=== PATIENT | male | born 1995 | race Caucasian/White ===

== ENCOUNTER 2016-06-21 07:00 | Inpatient (IN) | payer BC, OTHER ==
[2016-06-21] MEDS ORDERED: NORMAL SALINE 1000 ML 1,000 ML IV PRN ×2 (07:16→08:17)
[2016-06-21] MEDS ORDERED: MORPHINE SULFATE 10 MG/ML INJ IV ONE (07:34)
[2016-06-21] MEDS ORDERED: ONDANSETRON HCL INJ/PF 4 MG/2 ML SDV IV ONE (07:34)
--- NOTE | 2016-06-21 07:36 | ER Document Report ---
ED General - General Chief Complaint: High Blood Sugar Stated Complaint: POSSIBLE DKA Time Seen by Provider: 06/21/16 07:15 Mode of Arrival: Ambulatory Information source: Patient Notes: 21-year-old male history of diabetes who had issues with his insulin being sent home presents with complaints of nausea vomiting 7. Patient notes his blood sugar at home was 419 prior to arrival. Patient has not been in DKA many years TRAVEL OUTSIDE OF THE [place] IN LAST 30 DAYS: No - HPI Onset: Just prior to arrival Onset/Duration: Sudden Quality of pain: Achy Severity: Moderate Pain Level: 2 Associated symptoms: Headache, Nausea, Vomiting Exacerbated by: Denies Relieved by: Denies Similar symptoms previously: Yes Recently seen / treated by doctor: No - Related Data Allergies/Adverse Reactions: No Known Allergies Allergy (Unverified 06/21/16 07:07) Past Medical History - Social History Smoking Status: Never Smoker Cigarette use (# per day): No Chew tobacco use (# tins/day): No Smoking Education Provided: No Family History: Reviewed & Not Pertinent Patient has suicidal ideation: No Patient has homicidal ideation: No Renal/ Medical History: Denies: Hx Peritoneal Dialysis Review of Systems - Review of Systems Notes: PHYSICAL EXAMINATION: GENERAL: Ill appearing male in mild distress HEAD: Atraumatic, normocephalic. EYES: Pupils equal round and reactive to light, extraocular movements intact, conjunctiva are normal. ENT: Nares patent, oropharynx clear without exudates. Moist mucous membranes. NECK: Normal range of motion, supple without lymphadenopathy LUNGS: Tachypneic HEART: Tachycardic ABDOMEN: Soft, nontender, nondistended abdomen. No guarding, no rebound. No masses appreciated. Female : deferred Musculoskeletal: Normal range of motion, no pitting or edema. No cyanosis. NEUROLOGICAL: Normal speech, normal gait. Normal sensory, motor exams PSYCH: Normal mood, normal affect. SKIN: Pale Physical Exam - Vital signs Vitals: Temp Pulse Resp BP Pulse Ox 97.9 F 126 H 18 150/91 H 99 06/21/16 07:04 06/21/16 07:04 06/21/16 07:04 06/21/16 07:04 06/21/16 07:04 Course - Re-evaluation Re-evalutation: 06/21/16 07:36 Patient is in probable DKA, lab work fluids pain control and nausea control have been ordered 06/21/16 08:53 glucose 412, co2 <6 06/21/16 09:01 consistant with dka, insuline drip order given to nurse - Vital Signs Vital signs: Temp Pulse Resp BP Pulse Ox 97.9 F 113 H 20 154/91 H 100 06/21/16 07:04 06/21/16 07:55 06/21/16 08:15 06/21/16 07:55 06/21/16 08:15 - Laboratory Result Diagrams: 06/21/16 07:54 06/21/16 07:54 Laboratory results interpreted by me: 06/21/16 06/21/16 06/21/16 07:54 07:54 07:54 WBC 17.2 H RBC 6.04 H Hct 52.5 H Seg Neutrophils % 84.1 H Lymphocytes % 9.7 L Absolute Neutrophils 14.5 H VBG pH 7.11 L* VBG pCO2 23.6 L VBG HCO3 7.4 L Sodium 135.1 L Carbon Dioxide 6 L* Anion Gap 31 H Glucose 412 H* Direct Bilirubin 0.7 H Total Protein 9.1 H Albumin 5.4 H Urine Protein Urine Glucose (UA) Urine Ketones Urine Blood 06/21/16 08:17 WBC RBC Hct Seg Neutrophils % Lymphocytes % Absolute Neutrophils VBG pH VBG pCO2 VBG HCO3 Sodium Carbon Dioxide Anion Gap Glucose Direct Bilirubin Total Protein Albumin Urine Protein 100 H Urine Glucose (UA) >=500 H Urine Ketones 80 H Urine Blood SMALL H Discharge - Discharge Clinical Impression: Diabetic ketoacidosis Qualifiers: Diabetes mellitus type: type 1 Diabetes mellitus complication detail: without coma Qualified Code(s): E10.10 - Type 1 diabetes mellitus with ketoacidosis without coma Vomiting Qualifiers: Vomiting type: unspecified Vomiting Intractability: non-intractable Nausea presence: with nausea Qualified Code(s): R11.2 - Nausea with vomiting, unspecified Condition: Fair Disposition: ADMITTED INPATIENT Admitting Provider: Hospitalist Unit Admitted: [facility]
[2016-06-21 08:13] LABS: ABSOLUTE BASOPHILS # (AUTO) 0.1 10^3/uL (0.0-0.2); ABSOLUTE LYMPHOCYTES (AUTO) 1.7 10^3/uL (0.5-4.7); ABSOLUTE NEUT (AUTO) 14.5 10^3/uL (1.7-8.2); BASOPHILS % (AUTO) 0.5 % (0-2); HEMATOCRIT 52.5 % (37.9-51.0); HGB HCT DIFFERENCE -1.5; LYMPHOCYTES % (AUTO) 9.7 % (13-45); MEAN CORPUSCULAR HEMOGLOBIN 28.2 pg (27.0-33.4); MEAN CORPUSCULAR HGB CONC 32.5 g/dL (32.0-36.0); MEAN CORPUSCULAR VOLUME 87 fl (80-97); MONOCYTES % (AUTO) 5.7 % (3-13); RED BLOOD COUNT 6.04 10^6/uL (4.35-5.55); RED CELL DISTRIBUTION WIDTH 13.6 % (11.5-14.0); SEGMENTED NEUTROPHILS % (AUTO) 84.1 % (42-78); VENOUS BLOOD BASE EXCESS -20.2 mmol/L; VENOUS BLOOD HCO3 7.4 mmol/L (20-32); VENOUS BLOOD PCO2 23.6 mmHg (35-63); WHITE BLOOD COUNT 17.2 10^3/uL (4.0-10.5)
[2016-06-21 08:20] LABS: VENOUS BLOOD PH 7.11 (7.30-7.42)
[2016-06-21 08:31] LABS: ALANINE AMINOTRANSFERASE 29 U/L (21-72); ALBUMIN 5.4 g/dL (3.5-5.0); ALKALINE PHOSPHATASE 112 U/L (38-126); ASPARTATE AMINO TRANSFERASE 20 U/L (17-59); BILIRUBIN,DIRECT 0.7 mg/dL (0.0-0.4); BLOOD UREA NITROGEN 13 mg/dL (7-20); CALCIUM 9.6 mg/dL (8.4-10.2); CHLORIDE 98 mmol/L (98-107); CREATININE RESULT 1.02 mg/dL (0.52-1.25); POTASSIUM 4.8 mmol/L (3.6-5.0); SODIUM 135.1 mmol/L (137-145); TOTAL PROTEIN 9.1 g/dL (6.3-8.2)
[2016-06-21 08:50] LABS: APPEARANCE,URINE CLEAR; BILIRUBIN,URINE NEGATIVE (NEGATIVE); GLUCOSE, URINE >=500 mg/dL (NEGATIVE); KETONES,URINE 80 mg/dL (NEGATIVE); LEUKOCYTE ESTERASE,URINE NEGATIVE (NEGATIVE); NITRITE,URINE NEGATIVE (NEGATIVE); PROTEIN,URINE 100 mg/dL (NEGATIVE); URINE SPECIFIC GRAVITY 1.027; UROBILINOGEN,URINE NEGATIVE mg/dL (<2.0)
[2016-06-21 08:52] LABS: GLUCOSE 412 mg/dL (75-110)
[2016-06-21 08:53] LABS: CARBON DIOXIDE 6 mmol/L (22-30)
[2016-06-21 08:55] LABS: ANION GAP 31 (5-19)
[2016-06-21] MEDS ORDERED: INSULIN REG, HUMAN 100 UNIT/ML 3 ML VIAL (PYX) ONE (09:07)
[2016-06-21] MEDS ORDERED: ZOLPIDEM TARTRATE 5 MG TABLET PO PRN (09:23)
[2016-06-21] MEDS ORDERED: ONDANSETRON HCL INJ/PF 4 MG/2 ML SDV IV PRN (09:23)
[2016-06-21] MEDS ORDERED: ACETAMINOPHEN 325 MG TABLET PO PRN (09:23)
[2016-06-21] MEDS ORDERED: INSULIN LISPRO 100 UNIT/ML 3 ML VIAL SUBCUT PRN (09:31)
[2016-06-21] MEDS ORDERED: GLUCAGON,HUMAN RECOMB 1 MG INJ IM PRN ×3 (09:31→09:39)
[2016-06-21] MEDS ORDERED: NORMAL SALINE 100 ML with INSULIN REGULAR, HUMAN 100 UNIT IV PRN ×2 (09:31)
[2016-06-21] MEDS ORDERED: DEXTROSE 40% GEL 15 GM TUBE PO PRN ×5 (09:31→09:39)
[2016-06-21] MEDS ORDERED: DEXTROSE 50%-WATER 25 GM/50 ML DISP.SYRIN IV PRN ×4 (09:31→09:33)
[2016-06-21] MEDS ORDERED: INSULIN, REGULAR 100 UNIT/100 ML NORMAL SALINE IV PRN ×2 (09:39)
[2016-06-21] MEDS ORDERED: DEXTROSE 50%-WATER SYRINGE 12.5 GM/25 ML DOSE IV PRN (09:39)
[2016-06-21] MEDS ORDERED: DEXTROSE 50%-WATER SYRINGE 25 GM/50 ML DOSE IV PRN (09:39)
[2016-06-21] MEDS ORDERED: DEXTROSE 40% GEL 15 GM TUBE X 2 PO PRN (09:39)
[2016-06-21] MEDS ORDERED: FAMOTIDINE 20 MG TABLET PO SCH (10:00)
[2016-06-21] MEDS ORDERED: KETOROLAC TROMETHAMINE INJ/PF 30 MG/1 ML SDV IV PRN (10:09)
[2016-06-21] MEDS ORDERED: MORPHINE SULFATE 10 MG/ML INJ IV PRN (10:50)
[2016-06-21 12:15] LABS: BLOOD UREA NITROGEN 10 mg/dL (7-20); CALCIUM 7.5 mg/dL (8.4-10.2); CHLORIDE 112 mmol/L (98-107); GLUCOSE 163 mg/dL (75-110); POTASSIUM 4.5 mmol/L (3.6-5.0)
[2016-06-21 12:29] LABS: SODIUM 137.5 mmol/L (137-145)
[2016-06-21 12:38] LABS: ANION GAP 18 (5-19); CARBON DIOXIDE 8 mmol/L (22-30)
--- NOTE | 2016-06-21 12:56 | PDOC H&P ---
History of Present Illness Admission Date/PCP: 06/21/16 09:25 Patient complains of: Nausea, vomiting and elevated blood sugar History of Present Illness: HILARIA MCWILLIAMS is a 21 year old male with history of diabetes mellitus type I , who presents to the emergency room with complaints of nausea and vomiting 7 this morning and elevated blood glucose of 419. Patient states he ran out of of his insulin yesterday afternoon for his insulin pump. He had ordered it from the pharmacy on Monday, and they had had a hard time obtaining the type of insulin he uses for his pump. He states he went to get up yesterday afternoon and they informed him it wouldn't be there for another 24 hours. He states he did have vials of regular insulin at home which he uses covering himself up until bedtime. He did not have any long-acting insulin to use for overnight. He noted acetone breath after his nausea and vomiting episode. Therefore presented to the emergency room for possible DKA. 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 Past Medical History Cardiac Medical History: Reports: None Pulmonary Medical History: Reports: None EENT Medical History: Reports: None Neurological Medical History: Reports: None Endocrine Medical History: Reports: Diabetes Mellitus Type 1 - INSULIN PUMP Renal/ Medical History: Reports: None Malignancy Medical History: Reports: None GI Medical History: Reports: None Musculoskeltal Medical History: Reports: None Skin Medical History: Reports: None Psychiatric Medical History: Reports: None Traumatic Medical History: Reports: None Infectious Medical History: Reports: None Past Surgical History Past Surgical History: Reports: Orthopedic Surgery - R SHOULDER, Tonsillectomy - AND ADDENNOIDS Social History Information Source: Patient Lives with: Family Smoking Status: Never Smoker Frequency of Alcohol Use: Rare Hx Recreational Drug Use: No Hx Prescription Drug Abuse: No - Advance Directive Resuscitation Status: Full Code Surrogate healthcare decision maker:: Home, parents Family History Family History: DM Parental Family History Reviewed: Yes Children Family History Reviewed: Yes Sibling(s) Family History Reviewed.: Yes Medication/Allergy Allergies/Adverse Reactions: No Known Allergies Allergy (Verified 06/21/16 09:19) Review of Systems Constitutional: ABSENT: chills, fever(s), headache(s), weight gain, weight loss Eyes: ABSENT: visual disturbances Ears: ABSENT: hearing changes Cardiovascular: ABSENT: chest pain, dyspnea on exertion, edema, orthropnea, palpitations Respiratory: ABSENT: cough, hemoptysis Gastrointestinal: ABSENT: abdominal pain, constipation, diarrhea, hematemesis, hematochezia, nausea, vomiting Genitourinary: ABSENT: dysuria, hematuria Musculoskeletal: ABSENT: joint swelling Integumentary: ABSENT: rash, wounds Neurological: ABSENT: abnormal gait, abnormal speech, confusion, dizziness, focal weakness, syncope Psychiatric: ABSENT: anxiety, depression, homidical ideation, suicidal ideation Endocrine: ABSENT: cold intolerance, heat intolerance, polydipsia, polyuria Hematologic/Lymphatic: ABSENT: easy bleeding, easy bruising Physical Exam Vital Signs: Temp Pulse Resp BP Pulse Ox 97.9 F 100 18 126/74 H 100 06/21/16 07:04 06/21/16 11:24 06/21/16 11:30 06/21/16 11:30 06/21/16 11:30 General appearance: PRESENT: no acute distress, well-developed, well-nourished Head exam: PRESENT: atraumatic, normocephalic Eye exam: PRESENT: conjunctiva pink, EOMI, PERRLA. ABSENT: scleral icterus Ear exam: PRESENT: normal external ear exam Mouth exam: PRESENT: moist, tongue midline Neck exam: ABSENT: carotid bruit, JVD, lymphadenopathy, thyromegaly Respiratory exam: PRESENT: clear to auscultation arnoldo. ABSENT: rales, rhonchi, wheezes Cardiovascular exam: PRESENT: RRR. ABSENT: diastolic murmur, rubs, systolic murmur Pulses: PRESENT: normal dorsalis pedis pul Vascular exam: PRESENT: normal capillary refill GI/Abdominal exam: PRESENT: normal bowel sounds, soft. ABSENT: distended, guarding, mass, organolmegaly, rebound, tenderness Rectal exam: PRESENT: deferred Extremities exam: PRESENT: full ROM. ABSENT: calf tenderness, clubbing, pedal edema Neurological exam: PRESENT: alert, awake, oriented to person, oriented to place , oriented to time, oriented to situation, CN II-XII grossly intact. ABSENT: motor sensory deficit Psychiatric exam: PRESENT: appropriate affect, normal mood. ABSENT: homicidal ideation, suicidal ideation Skin exam: PRESENT: dry, intact, warm. ABSENT: cyanosis, rash Assessment & Plan - Diagnosis (1) DKA (diabetic ketoacidoses) Qualifiers: Diabetes mellitus type: type 1 Diabetes mellitus complication detail: without coma Qualified Code(s): E10.10 - Type 1 diabetes mellitus with ketoacidosis without coma Is this a current diagnosis for this admission?: YesPlan: IV hydration, IV insulin drip, serial BMPs until anion gap closes. Patient will be transitioned to his home insulin pump (2) Vomiting Qualifiers: Vomiting type: unspecified Vomiting Intractability: non-intractable Nausea presence: with nausea Qualified Code(s): R11.2 - Nausea with vomiting, unspecified Is this a current diagnosis for this admission?: YesPlan: When necessary IV Zofran, IV fluids, clear liquid diet and advance as tolerated. (3) Headache Qualifiers: Headache chronicity pattern: acute headache Intractability: not intractable Is this a current diagnosis for this admission?: YesPlan: Toradol prn (4) DVT prophylaxis Is this a current diagnosis for this admission?: YesPlan: Lovenox 40 mg sq daily - Time Time Spent: 50 to 70 Minutes Critical Time spent with patient: 25-34 minutes Medications reviewed and adjusted accordingly: Yes Anticipated discharge: Home
[2016-06-21] MEDS ORDERED: FAMOTIDINE INJ/PF 20 MG/2 ML SDV IV SCH (13:45)
[2016-06-21] MEDS: OXYCODONE-ACETAMINOPHEN 5-325 MG TABLET PO PRN ×2 (14:07→23:05)
[2016-06-21] MEDS ORDERED: FAMOTIDINE INJ/PF 20 MG/2 ML SDV IV ONE (15:00)
[2016-06-21 16:26] LABS: ANION GAP 13 (5-19); BLOOD UREA NITROGEN 9 mg/dL (7-20); CALCIUM 7.8 mg/dL (8.4-10.2); CARBON DIOXIDE 13 mmol/L (22-30); CHLORIDE 110 mmol/L (98-107); CREATININE RESULT 0.83 mg/dL (0.52-1.25); GLUCOSE 166 mg/dL (75-110); POTASSIUM 4.1 mmol/L (3.6-5.0); SODIUM 136.4 mmol/L (137-145)
[2016-06-21 20:39] LABS: ANION GAP 6 (5-19); BLOOD UREA NITROGEN 9 mg/dL (7-20); CALCIUM 8.2 mg/dL (8.4-10.2); CARBON DIOXIDE 17 mmol/L (22-30); CHLORIDE 113 mmol/L (98-107); CREATININE RESULT 0.74 mg/dL (0.52-1.25); GLUCOSE 102 mg/dL (75-110); POTASSIUM 3.4 mmol/L (3.6-5.0); SODIUM 136.4 mmol/L (137-145)
[2016-06-21] MEDS: FAMOTIDINE INJ/PF 20 MG/2 ML SDV IV SCH (21:39)
[2016-06-21] MEDS: NORMAL SALINE 1000 ML 1,000 ML IV PRN (21:40)
[2016-06-22 00:35] LABS: ANION GAP 13 (5-19); BLOOD UREA NITROGEN 7 mg/dL (7-20); CALCIUM 8.2 mg/dL (8.4-10.2); CARBON DIOXIDE 14 mmol/L (22-30); CHLORIDE 109 mmol/L (98-107); CREATININE RESULT 0.59 mg/dL (0.52-1.25); GLUCOSE 148 mg/dL (75-110); POTASSIUM 3.5 mmol/L (3.6-5.0); SODIUM 136.2 mmol/L (137-145)
[2016-06-22] MEDS: NORMAL SALINE 1000 ML 1,000 ML IV PRN ×3 (04:42→19:38)
[2016-06-22 06:14] LABS: ABSOLUTE EOSINOPHILS # (AUTO) 0.1 10^3/uL (0.0-0.6); ABSOLUTE LYMPHOCYTES (AUTO) 2.7 10^3/uL (0.5-4.7); ABSOLUTE MONOCYTES (AUTO) 0.6 10^3/uL (0.1-1.4); ABSOLUTE NEUT (AUTO) 3.4 10^3/uL (1.7-8.2); BASOPHILS % (AUTO) 0.6 % (0-2); EOSINOPHILS % (AUTO) 1.9 % (0-6); HEMATOCRIT 37.6 % (37.9-51.0); HGB HCT DIFFERENCE 0.5; LYMPHOCYTES % (AUTO) 38.9 % (13-45); MEAN CORPUSCULAR HEMOGLOBIN 28.4 pg (27.0-33.4); MEAN CORPUSCULAR HGB CONC 33.9 g/dL (32.0-36.0); MONOCYTES % (AUTO) 9.2 % (3-13); RED BLOOD COUNT 4.49 10^6/uL (4.35-5.55); RED CELL DISTRIBUTION WIDTH 13.3 % (11.5-14.0); SEGMENTED NEUTROPHILS % (AUTO) 49.4 % (42-78)
[2016-06-22 06:17] LABS: HEMOGLOBIN 12.7 g/dL (13.5-17.0); MEAN CORPUSCULAR VOLUME 84 fl (80-97)
[2016-06-22] MEDS ORDERED: POTASSIUM CHLORIDE 10 MEQ TABLET.SA PO ONE (07:45)
[2016-06-22 07:57] LABS: ANION GAP 8 (5-19); BLOOD UREA NITROGEN 7 mg/dL (7-20); CALCIUM 8.4 mg/dL (8.4-10.2); CARBON DIOXIDE 20 mmol/L (22-30); CHLORIDE 110 mmol/L (98-107); CREATININE RESULT 0.54 mg/dL (0.52-1.25); GLUCOSE 100 mg/dL (75-110); POTASSIUM 3.1 mmol/L (3.6-5.0); SODIUM 137.7 mmol/L (137-145)
[2016-06-22] MEDS: ENOXAPARIN SODIUM INJ 40 MG/0.4 ML DISP.SYRIN SUBCUT SCH (08:06)
[2016-06-22] MEDS ORDERED: LANSOPRAZOLE 30 MG TAB.RAP.DR PO ONE (08:30)
[2016-06-22] MEDS: INSULIN GLARGINE,HUM.REC.ANLOG 1,000 UNIT/10 ML UNIT SUBCUT SCH ×2 (09:07→21:59)
[2016-06-22] MEDS: IBUPROFEN 800 MG TABLET PO SCH ×2 (09:08→17:50)
[2016-06-22] MEDS: FAMOTIDINE INJ/PF 20 MG/2 ML SDV IV SCH ×2 (09:08→21:59)
[2016-06-22] MEDS ORDERED: INSULIN GLARGINE,HUM.REC.ANLOG 300 UNIT/3 ML INSULN.PEN SUBCUT SCH (10:00)
--- NOTE | 2016-06-22 10:51 | PDOC PROGRESS REPORT ---
Subjective Progress Note for:: 06/22/16 Subjective:: Patient is seen on morning rounds. He is resting in bed. He states he feels better than he did yesterday. He continues to complain of headache and indigestion pain. He denies any further nausea or vomiting. He continues on insulin drip. He states he is missing connecting tubing to his insulin pump. He denies any other complaints at the present time. Physical Exam Vital Signs: Temp Pulse Resp BP Pulse Ox 97.8 F 87 16 118/58 L 100 06/22/16 07:34 06/22/16 07:34 06/22/16 07:34 06/22/16 07:34 06/22/16 07:34 Intake & Output 06/21/16 06/22/16 06/23/16 06:59 06:59 06:59 Intake Total 2317 Output Total 0 Balance 2317 Weight 83.1 kg General appearance: PRESENT: no acute distress, thin, well-developed Head exam: PRESENT: atraumatic, normocephalic Eye exam: PRESENT: conjunctiva pink, EOMI, PERRLA. ABSENT: scleral icterus Ear exam: PRESENT: normal external ear exam Mouth exam: PRESENT: moist, tongue midline Neck exam: ABSENT: carotid bruit, JVD, lymphadenopathy, thyromegaly Respiratory exam: PRESENT: clear to auscultation arnoldo. ABSENT: rales, rhonchi, wheezes Cardiovascular exam: PRESENT: RRR. ABSENT: diastolic murmur, rubs, systolic murmur Pulses: PRESENT: normal dorsalis pedis pul Vascular exam: PRESENT: normal capillary refill GI/Abdominal exam: PRESENT: normal bowel sounds, soft. ABSENT: distended, guarding, mass, organolmegaly, rebound, tenderness Rectal exam: PRESENT: deferred Extremities exam: PRESENT: full ROM. ABSENT: calf tenderness, clubbing, pedal edema Neurological exam: PRESENT: alert, awake, oriented to person, oriented to place , oriented to time, oriented to situation, CN II-XII grossly intact. ABSENT: motor sensory deficit Psychiatric exam: PRESENT: appropriate affect, normal mood. ABSENT: homicidal ideation, suicidal ideation Skin exam: PRESENT: dry, intact, warm. ABSENT: cyanosis, rash Results Laboratory Results: 06/22/16 05:52 06/22/16 07:27 0506/21/16 06/21/16 11:44 15:25 20:00 WBC RBC Hgb Hct MCV MCH MCHC RDW Plt Count Seg Neutrophils % Lymphocytes % Monocytes % Eosinophils % Basophils % Absolute Neutrophils Absolute Lymphocytes Absolute Monocytes Absolute Eosinophils Absolute Basophils Sodium 137.5 136.4 L 136.4 L Potassium 4.5 4.1 3.4 L Chloride 112 H 110 H 113 H Carbon Dioxide 8 L* 13 L 17 L Anion Gap 18 13 6 BUN 10 9 9 Creatinine 0.70 0.83 0.74 Est GFR ( Amer) > 60 > 60 > 60 Est GFR (Non-Af Amer) > 60 > 60 > 60 Glucose 163 H 166 H 102 Calcium 7.5 L 7.8 L 8.2 L Magnesium 06/22/16 06/22/16 06/22/16 00:13 05:52 05:52 WBC 7.0 RBC 4.49 Hgb 12.7 L D Hct 37.6 L MCV 84 MCH 28.4 MCHC 33.9 RDW 13.3 Plt Count 158 Seg Neutrophils % 49.4 Lymphocytes % 38.9 Monocytes % 9.2 Eosinophils % 1.9 Basophils % 0.6 Absolute Neutrophils 3.4 Absolute Lymphocytes 2.7 Absolute Monocytes 0.6 Absolute Eosinophils 0.1 Absolute Basophils 0.0 Sodium 136.2 L Potassium 3.5 L Chloride 109 H Carbon Dioxide 14 L Anion Gap 13 BUN 7 Creatinine 0.59 Est GFR ( Amer) > 60 Est GFR (Non-Af Amer) > 60 Glucose 148 H Calcium 8.2 L Magnesium 1.8 06/22/16 07:27 WBC RBC Hgb Hct MCV MCH MCHC RDW Plt Count Seg Neutrophils % Lymphocytes % Monocytes % Eosinophils % Basophils % Absolute Neutrophils Absolute Lymphocytes Absolute Monocytes Absolute Eosinophils Absolute Basophils Sodium 137.7 Potassium 3.1 L Chloride 110 H Carbon Dioxide 20 L Anion Gap 8 BUN 7 Creatinine 0.54 Est GFR ( Amer) > 60 Est GFR (Non-Af Amer) > 60 Glucose 100 Calcium 8.4 Magnesium Assessment & Plan - Diagnosis (1) DKA (diabetic ketoacidoses) Qualifiers: Diabetes mellitus type: type 1 Diabetes mellitus complication detail: without coma Qualified Code(s): E10.10 - Type 1 diabetes mellitus with ketoacidosis without coma Is this a current diagnosis for this admission?: YesPlan: Anion gap closed. Will transition from IV insulin to lantus due to patient not having pump supplies or insulin. (2) Vomiting Qualifiers: Vomiting type: unspecified Vomiting Intractability: non-intractable Nausea presence: with nausea Qualified Code(s): R11.2 - Nausea with vomiting, unspecified Is this a current diagnosis for this admission?: YesPlan: When necessary IV Zofran, IV hydration. Tolerating regular diabetic diet (3) Headache Qualifiers: Headache chronicity pattern: acute headache Intractability: not intractable Is this a current diagnosis for this admission?: YesPlan: Toradol prn (4) DVT prophylaxis Is this a current diagnosis for this admission?: YesPlan: Lovenox 40 mg sq daily (5) Hypokalemia Is this a current diagnosis for this admission?: YesPlan: Replete as necessary - Time Time Spent with patient: 25-34 minutes Critical Time spent with patient: 15-24 minutes Medications reviewed and adjusted accordingly: Yes Anticipated discharge: Home Within: within 24 hours
[2016-06-22] MEDS ORDERED: POTASSIUM CHLORIDE 10 MEQ TABLET.SA PO SCH (14:00)
[2016-06-22] MEDS: LANSOPRAZOLE 30 MG TAB.RAP.DR PO SCH (17:50)
[2016-06-22] MEDS ORDERED: DEXTROSE 40% GEL 15 GM TUBE X 2 PO PRN (17:55)
[2016-06-22] MEDS ORDERED: GLUCAGON,HUMAN RECOMB 1 MG INJ IM PRN (17:55)
[2016-06-22] MEDS ORDERED: DEXTROSE 50%-WATER SYRINGE 25 GM/50 ML DOSE IV PRN (17:55)
[2016-06-22] MEDS ORDERED: DEXTROSE 40% GEL 15 GM TUBE PO PRN (17:55)
[2016-06-22] MEDS ORDERED: DEXTROSE 50%-WATER SYRINGE 12.5 GM/25 ML DOSE IV PRN (17:55)
[2016-06-22] MEDS ORDERED: INSULIN LISPRO 100 UNIT/ML 3 ML VIAL ONE (18:05)
[2016-06-22] MEDS: INSULIN LISPRO 100 UNIT/ML 3 ML VIAL SUBCUT PRN ×2 (18:08→21:59)
[2016-06-23] MEDS: NORMAL SALINE 1000 ML 1,000 ML IV PRN (02:21)
[2016-06-23] MEDS: LANSOPRAZOLE 30 MG TAB.RAP.DR PO SCH (05:20)
[2016-06-23 07:40] LABS: ANION GAP 11 (5-19); BLOOD UREA NITROGEN 4 mg/dL (7-20); CALCIUM 8.3 mg/dL (8.4-10.2); CARBON DIOXIDE 23 mmol/L (22-30); CHLORIDE 106 mmol/L (98-107); CREATININE RESULT 0.51 mg/dL (0.52-1.25); GLUCOSE 152 mg/dL (75-110); POTASSIUM 3.2 mmol/L (3.6-5.0); SODIUM 139.6 mmol/L (137-145)
[2016-06-23] MEDS ORDERED: POTASSIUM CHLORIDE 10 MEQ TABLET.SA PO ONE (08:00)
[2016-06-23] MEDS: ENOXAPARIN SODIUM INJ 40 MG/0.4 ML DISP.SYRIN SUBCUT SCH (08:55)
[2016-06-23 09:01] VITALS: BP 117/64
[2016-06-23] MEDS: INSULIN GLARGINE,HUM.REC.ANLOG 1,000 UNIT/10 ML UNIT SUBCUT SCH (09:04)
[2016-06-23] MEDS: IBUPROFEN 800 MG TABLET PO SCH (09:05)
[2016-06-23] MEDS: FAMOTIDINE INJ/PF 20 MG/2 ML SDV IV SCH (09:05)
--- NOTE | 2016-06-23 10:33 | PDOC DISCHARGE SUMMARY ---
General - Admit/Disc Date/PCP Admission Date/Primary Care Provider: 06/21/16 09:25 Discharge Date: 06/23/16 - Discharge Diagnosis (1) DKA (diabetic ketoacidoses) Is this a current diagnosis for this admission?: YesSummary: Resolved. Patient will be discharged on lantus insulin bid, until he can get supplies for his insulin pump and insulin for his pump (2) Vomiting Is this a current diagnosis for this admission?: YesSummary: Resolved (3) Headache Is this a current diagnosis for this admission?: YesSummary: Resolved (4) DVT prophylaxis Is this a current diagnosis for this admission?: Yes (5) Hypokalemia Is this a current diagnosis for this admission?: YesSummary: Repleted - Additional Information Resuscitation Status: Full Code Discharge Diet: Diabetic Discharge Activity: Activity As Tolerated, Balance Activity w/Rest Home Medications: Ibuprofen [Motrin 800 mg Tablet] 800 mg PO BID 06/21/16 Insulin Glulisine [Apidra Insulin (Glulisine) 100 unit/mL] 0 unit PUMP .SLD SCALE PRN 06/21/16 Acetaminophen [Tylenol 325 mg Tablet] 650 mg PO Q4HP PRN tablet 06/23/16 Insulin Glargine,Hum.rec.anlog [Lantus Insulin Inj 300 Unit/3 ml Pen] 20 unit SUBCUT BID #10 unit 06/23/16 History of Present Illness Patient complains of: High blood glucose, nausea and vomiting History of Present Illness: HILARIA MCWILLIAMS is a 21 year old male with history of diabetes mellitus type I , who presents to the emergency room with complaints of nausea and vomiting 7 this morning and elevated blood glucose of 419. Patient states he ran out of of his insulin yesterday afternoon for his insulin pump. He had ordered it from the pharmacy on Monday, and they had had a hard time obtaining the type of insulin he uses for his pump. He states he went to get up yesterday afternoon and they informed him it wouldn't be there for another 24 hours. He states he did have vials of regular insulin at home which he uses covering himself up until bedtime. He did not have any long-acting insulin to use for overnight. He noted acetone breath after his nausea and vomiting episode. Therefore presented to the emergency room for possible DKA. Patient is employed in the [employer] department [employer]. Hospital Course Hospital Course: Patient was admitted to the hospital service on telemetry. He was started on IV insulin protocol. He was aggressively rehydrated with IV fluids. Serial BMPs were obtained every 4 hours. Chemistrips were obtained every 1 hour. His anion gap closed quickly. Following day he was able to tolerate liquids and progress his diet to regular by lunchtime. He was started on lantus insulin 2 hrs later IV insulin was discontinued. Today his labs have normalized. His chemstrips have been well controlled. He feels much improved. He is ready for discharge. Physical Exam Vital Signs: Temp Pulse Resp BP Pulse Ox 97.6 F 61 14 117/64 100 06/23/16 09:00 06/23/16 09:00 06/23/16 09:00 06/23/16 09:00 06/23/16 09:00 Intake & Output 06/22/16 06/23/16 06/24/16 06:59 06:59 06:59 Intake Total 2317 4590 Output Total 0 Balance 2317 4590 Weight 83.1 kg 83.8 kg General appearance: PRESENT: no acute distress, well-developed, well-nourished Head exam: PRESENT: atraumatic, normocephalic Eye exam: PRESENT: conjunctiva pink, EOMI, PERRLA. ABSENT: scleral icterus Ear exam: PRESENT: normal external ear exam Mouth exam: PRESENT: moist, tongue midline Neck exam: ABSENT: carotid bruit, JVD, lymphadenopathy, thyromegaly Respiratory exam: PRESENT: clear to auscultation arnoldo. ABSENT: rales, rhonchi, wheezes Cardiovascular exam: PRESENT: RRR. ABSENT: diastolic murmur, rubs, systolic murmur Pulses: PRESENT: normal dorsalis pedis pul Vascular exam: PRESENT: normal capillary refill GI/Abdominal exam: PRESENT: normal bowel sounds, soft. ABSENT: distended, guarding, mass, organolmegaly, rebound, tenderness Rectal exam: PRESENT: deferred Extremities exam: PRESENT: full ROM. ABSENT: calf tenderness, clubbing, pedal edema Neurological exam: PRESENT: alert, awake, oriented to person, oriented to place , oriented to time, oriented to situation, CN II-XII grossly intact. ABSENT: motor sensory deficit Psychiatric exam: PRESENT: appropriate affect, normal mood. ABSENT: homicidal ideation, suicidal ideation Skin exam: PRESENT: dry, intact, warm. ABSENT: cyanosis, rash Results Laboratory Results: 06/22/16 05:52 06/23/16 06:09 06/23/16 06:09 Sodium 139.6 Potassium 3.2 L Chloride 106 Carbon Dioxide 23 Anion Gap 11 BUN 4 L Creatinine 0.51 L Est GFR ( Amer) > 60 Est GFR (Non-Af Amer) > 60 Glucose 152 H Calcium 8.3 L Qualifiers [place] BEING DISCHARGED WITH ANY OF THE FOLLOWING DIAGNOSIS?: No Plan Discharge Plan: Home with family Time Spent: Less than 30 Minutes
== END 2016-06-23 10:01 | disposition home or self-care (01) | DRG 639 ==
LOC: ER 07:00 → UNDOADMIN 09:19 → EH 09:19 → 3W 12:56
PROVIDERS: ADMIT Internal Medicine; ATTEND Internal Medicine
DX: E10.10 Type 1 diabetes mellitus with ketoacidosis without coma (principal); E87.6 Hypokalemia; R51 Headache; Z96.41 Presence of insulin pump (external) (internal); Z79.4 Long term (current) use of insulin
CPT/HCPCS: 36415; 80048; 80053; 81001; 82803; 82962; 83735; 85025; 96361; 96374; 96375; 99285; J1650; J1815; J1885; J2270; J2405; J7030; S0028